=== PATIENT | female | born 1955 | race Two or more races ===

== ENCOUNTER 2023-07-21 12:06 | Day surgery (SDC) | payer MEDICARE, OTHER, SELFPAY ==
--- NOTE | 2023-07-21 12:27 | US_ITS ---
[address] [address] Patient Name: JASPREET MUSE MRN: [id number] date: 1955 Sex: F Assigned Patient Location: US Current Patient Location: US Accession/Order Number: [id number] Exam Date: 07/21/2023 12:30 Report Date: 07/21/2023 13:46 At the request of: OFELIA FARIAS Procedure: US biopsy thyroid EXAMINATION: US biopsy thyroid HISTORY: thyroid nodule COMPARISON: Prior ultrasound thyroid examination TECHNIQUE: After obtaining informed consent, ultrasound-guided fine needle aspiration was performed in the usual sterile manner. FINDINGS: IMAGING: Ultrasound. BIOPSY NEEDLE: 25-gauge Senokot 3 separate passes LOCATION: Left mid lobe solid 1.4 x 1.3 x 1.2 cm vascular nodule. SPECIMEN TYPE: Cellular tissue. LOCAL ANESTHETIC: Buffered Xylocaine. COMPLICATIONS: None. LABORATORY: Prepared slide smears and washings for cell block evaluation. OTHER: Negative. PATHOLOGY: Pending. An addendum will be added when results are available. US/US biopsy thyroid IMPRESSION: 1. Uneventful ultrasound guided fine needle aspiration (FNA). 2. Pathology results are pending. Electronically authenticated by: NANDO FREEDMAN Date: 07/21/2023 13:46
[2023-07-21 12:30] VITALS: BP 159/77; PULSE 53; O2SAT 99
[2023-07-21] MEDS: LIDOCAINE HCL 10 ML, SODIUM BICARBONATE 1 MEQ INJ (13:15)
--- NOTE | 2023-07-21 14:00 | SUR.PREOP ---
07/16/23 Pt instructed on procedure, date, time, and prep.
== END 2023-07-21 13:40 | disposition home or self-care (01) ==
LOC: US 12:14
PROVIDERS: Radiology Diagnostic Radiology; Visit Provider Otolaryngology
DX: E04.1 Nontoxic single thyroid nodule (principal)
CPT/HCPCS: 10005; 88173; 99999

== ENCOUNTER 2025-05-23 12:25 | Outpatient (OUT) | payer MEDICARE, OTHER, SELFPAY ==
--- OUTSIDE RECORDS SUMMARY | 2025-05-23 12:32 | XMS_ITS | Clinical Summary ---
Author Organization [facility] Address [address] [place], [place] [address] Care Team Providers Care Training Consultant Name Role Phone Nela Varner CNP Primary Care Provider [phone] Allergies Active AllergyReactionsCriticalityNoted DateCommentsPropoxyphene N-Acetaminophen GI Upset09/26/2021 tolerates oxycodone Nsaids (Non-Steroidal Anti-Inflammatory Drug)GI Upset09/26/2021 aleve Medications MedicationSigDispense QuantityRefillsLast FilledStart DateEnd DateStatus metoprolol succinate ER (TOPROL XL) 25 mg 24 hr tablet Take 25 mg by mouth twice daily.07/07/2021ctive famotidine (PEPCID) 20 mg tablet Take 20 mg by mouth twice daily.07/07/2021ctive atorvastatin (LIPITOR) 20 mg tablet Take 20 mg by mouth once daily.07/18/2021ctive mecobalamin (B12 ACTIVE ORAL) Take by mouth.Active magnesium oxide (MAG-OXIDE ORAL) Take by mouth.Active Cholecalciferol, Vitamin D3, 25 mcg (1,000 unit) cap Take 1,000 Units by mouth once daily.Active Zinc-Ascorbic Acid-Pyridoxine 12-60-0.5 mg lozg Take by mouth.Active calcium carbonate (CALCIUM 300 ORAL) Take by mouth.Active ubidecarenone Q-10 (CO Q-10) 10 mg cap Take 1 capsule by mouth once daily.10/01/2021ctive inulin (FIBER GUMMIES) 2 gram chew Take 2 Each by mouth once daily.10/01/2021ctive docusate sodium (COLACE) 100 mg capsule Indications:constipationTake 1 capsule by mouth twice daily as needed for constipation. 60 capsule 10/23/2021 4:00 PM EDT10/23/2021ctive aspirin, enteric coated (ECOTRIN LOW STRENGTH) 81 mg EC tablet Indications:blood clot preventionTake 1 tablet by mouth twice daily for 28 days. 56 tablet 10/23/2021 4:00 PM EDT10/23/2021ctive acetaminophen (TYLENOL EXTRA STRENGTH) 500 mg tablet Take 2 tablets by mouth every 8 hours as needed for pain.10/23/2021ctive oxyCODONE IR (ROXICODONE) 5 mg immediate release tablet Indications:S/P TKR (total knee replacement), right,Post-op painTake 1-2 tablets by mouth every 4-6 hours as needed for pain 50 tablet 10/23/2021 4:00 PM EDT10/23/2021ctive Active Problems ProblemNoted DateDiagnosed DateStatus post right knee koafwnkaqmt92/15/2022 Primary osteoarthritis of right knee10/01/2021Gastroesophageal reflux disease 09/26/2021 Assessment & Plan (09/26/2021 8:45 AM EDT): Assessment: Stable on RX Ydzojklgneqiyz28/27/3601Suqrdprcbztg82/27/2022 Assessment & Plan (09/26/2021 8:45 AM EDT): Assessment: Controlled with RX medication. Follows with PCP Ormnczrcbd48/27/2022yspnea on hsfeioox31/27/2022Memory tewvyiyrlu73/27/2022kin lesion of face09/26/2021 Immunizations ImmunizationAdministration DatesNext DueCOVID-19 original vaccine, age 12+ yr, monovalent (PFIZER-[employer] - PURPLE TOP)06/08/2021,09/15/2020,08/18/2020 influenza (HD-IIV3) vaccine, age 65+ yr, high dose, trivalent, PF (FLUZONE HIGH-DOSE)04/16/2021zoster (RZV) vaccine, recombinant (SHINGRIX)07/24/2018, 04/06/2018zoster (ZVL) vaccine, live (ZOSTAVAX)02/21/2016 Family History Medical HistoryRelationCommentsAnesthesia ProblemsNo Family History Social History Tobacco UseTypesPacks/DayYears UsedDateSmoking Tobacco: IxtukbKtckepyvlh0Nvvf: 2011Smokeless Tobacco: NeverAlcohol UseStandard Drinks/WeekCommentsNot Currently 0 (1 standard drink = 0.6 oz pure alcohol)none recently--rare one glass of wine if she doesArea Deprivation IndexAnswerDate RecordedNational Score (1-100), lower number is lower xbkf905210/07/2022State Score (1-10), lower number is lower bcfc7393Data from: https://www.neighborhoodatlas.[facility].edu/. Last address used for v[address]/07/2022CommentsNoSex and Gender InformationValueDate RecordedSex Assigned at BirthNot on fileLegal Sex Tbgnur1208/06/2021 8:47 AM ESTGender IdentityNot on fileSexual OrientationNot on file Last Filed Vital Signs Vital SignReadingTime TakenCommentsBlood Pslehnft351/4705 7:50 AM EDT Vdvsu629410/24/2021 7:50 AM DEHAebdnnowsfk41.7 ??C (98.1 ??F)10/24/2021 7:50 AM EDTRespiratory Qfwz667610/24/2021 7:50 AM EDTOxygen Hcngpzkryr21%10/24/2021 7:50 AM EDTInhaled Oxygen Concentration--Xuoxie02 kg (141 lb 1.5 oz)10/23/2021 7:12 PM ZKOSvfogd522.3 cm (4' 10 )10/23/2021 7:12 PM EDTBody Mass Index29.49 10/23/2021 7:12 PM EDT Plan of Treatment Health MaintenanceDue DateLast DoneCommentsAnnual PCP Team Chronic Disease Visit 1972Anxiety Vydvbfswa20/10/1972Depression Fjnxefwdx44/10/1972Hepatitis C Edegxgsgx35/10/1972DTaP,Tdap,Td Vaccine (1 - Tdap)1973Mammogram Screening 1994CT Mqwesefblgtf73/10/1999Cologuard (FIT-DNA)1999Colonoscopy 1999Colorectal Cancer Bkixtgxlz95/10/1999Fecal Occult Blood1999Lipid Fwmtzqcod31/10/2851Jhnzxoeoumorn75/10/1999Pneumococcal Vaccine: 50+ (1 of 1 - PCV)2004Medicare Annual Wellness Visit04/02/2019Bone Density Screening 2019Advance Directive Sablnkkdsx05/01/2025Diabetes Cijswsjls69/25/2025 10/24/2021, 09/26/2021, 2Covid-19 Vaccine ( season) 501/11/2021, 09/15/2020, 08/18/2020Influenza Vaccine (#1)2025 1RSV Vaccine (1 - 1-dose 75+ series)2029Shingrix VaccineCompleted 07/24/2018, 04/06/2018, 02/21/2016 Medical Devices ImplantedTypeAreaManufacturerDevice IdentifierShelf Expiration DateModel / Serial / LotComponent Triathlon 2 Pa Femoral Cruciate Retain Bead Knee Right - [id number] Implanted:[facility] STRY-HOWM [id number]/10/[id number] / / [id number] Triathlon 2 Tibial Sterile Latex Free Knee - [id number] Implanted:Qty: 1 [facility] STRY-HOWM QRGQDCBWHYG38/16/[id number] / / [id number] Triathlon 2 9mm Tibial Bearing Condylar Stabilize Sterile Knee - [id number] Implanted:Qty: 1 on 10/23/2021 at [facility] KneeRight: Bone - Knee STRY-HOWM IUMXUKXNBDH29/17/[id number] / / [id number] S Tritanium 31x9mm Patellar Sterile Latex Free - [id number] Implanted:Qty: 1 [facility]23/20[facility] Knee STRY-HOWM XFQTFSSGLSF95/08/[id number] / / [id number] Procedures Procedure NamePriorityDate/TimeAssociated DiagnosisCommentsBASIC METABOLIC PANEL Firsrje7010/24/2021 4:07 AM EDT from Last 3 Months or Most Recently Relevant to Health Maintenance Results * (ABNORMAL) BASIC METABOLIC PNL (10/24/2021 4:07 AM EDT)ComponentValueRef Range Test MethodAnalysis TimePerformed AtPathologist ZhosuhelaAnnebkn468(H)74 - 99 mg/dL10/24/2021 6:01 AM [facility] LABORATORYComment: The [place] Diabetes Association (ADA) provides guidance for cutoff values for fasting glucose andrandom glucose. The ADA defines fasting as no caloric intake for at least 8 hours. Fasting plasma glucose results between 100 to 125 mg/dL indicate increased risk for diabetes (prediabetes). Fasting plasma glucose results greater than or equal to 126 mg/dL meet the criteria for diagnosis of diabetes. In the absence of unequivocal hyperglycemia, results should be confirmed by repeat testing. In a patient with classic symptoms of hyperglycemia or hyperglycemic crisis, random plasma glucose results greater than or equal to 200 mg/dL meet the criteria for diagnosis of diabetes. Reference: Standards of Medical Care in Diabetes 2016, [place] Diabetes Association. Diabetes Care. 2016.39(Suppl 1). SGD171 - 21 mg/dL10/24/2021 6:01 AM [facility] LABORATORYCreatinine0.70 0.58 - 0.96 mg/dL10/24/2021 6:01 AM [facility] OBXEOAPKVDWmjcrz332434 - 144 mmol/L10/24/2021 6:01 AM [facility] LABORATORYPotassium4.43.7 - 5.1 mmol/L10/24/2021 6:01 AM [facility] AMJIXPQDCUYernlttg50381 - 105 mmol/L 10/24/2021 6:01 AM [facility] TFAUGXPVRIZL51436 - 30 mmol/L10/24/2021 6:01 AM [facility] LABORATORYAnion Yfi326 - 18 mmol/L10/24/2021 6:01 AM [facility] LABORATORYCalcium, Total9.18.5 - 10.2 mg/dL10/24/2021 6:01 AM [facility] LABORATORYEstimated Glomerular Filtration Rate95>=60 mL/min/1.73m 10/24/2021 6:01 AM [facility] LABORATORYComment:Estimated Glomerular Filtration Rate (eGFR) is calculated using the 2020 CKD-EPI creatinine equation. This equation utilizes serum creatinine, sex, and age as parameters. The creatinine assay has traceable calibration to isotope dilution-mass spectrometry. Refer to KDIGO guidelines for clinical interpretation. In patients with unstable renal function, e.g. those with acute kidney injury, the eGFRmay not accurately reflect actual GFR.Specimen (Source)Anatomical Location / LateralityCollection Method / VolumeCollection TimeReceived TimeBloodBLOOD SPECIMEN / UnknownVenipuncture / Ctvxkwu5310/24/2021 4:07 AM EDT10/24/2021 5:15 AM EDT Narrative Authorizing ProviderResult TypeResult StatusDenise [facility] PA-CLABORATORYFinal ResultPerforming OrganizationAddressCity/State/ZIP CodePhone Number [facility] [address] [place] [address], from Last 3 Months or Most Recently Relevant to Health Maintenance Insurance Care Teams Team MemberRelationshipSpecialtyStart DateEnd Date Nela Varner, CYTOGENETIC TECHNOLOGIST [address] [place] [address] PCP - GeneralInternal Medicine09/26/21
--- OUTSIDE RECORDS SUMMARY | 2025-05-23 12:32 | XMS_ITS | Clinical Summary ---
Author Organization [facility] Address [address] [facility] [place] [address] Care Team Providers Care Artificial Breast Fabricator Name Role Phone Slava Desir MD Primary Care Provider [phone] Allergies Active AllergyReactionsCriticalityNoted DateCommentsNsaidsGI intolerance 09/26/2021 aleve PropoxypheneGI rmrvrixvalx84/27/2022 tolerates oxycodone Medications MedicationSigDispense QuantityRefillsLast FilledStart DateEnd DateStatus metoprolol succinate XL (Toprol-XL) 25 MG 24 hr tablet Take 25 mg by mouth every 12 (twelve) hoursActive omeprazole (PriLOSEC) [address] capsule Take 40 mg by mouth01/22/2023ctive magnesium 30 MG tablet Take 30 mg by mouth DailyActive lisinopril 10 MG tablet Take 10 mg by mouth Daily5Active Multiple Vitamins-Minerals (multivitamin with minerals) tablet Take 1 tablet by mouth DailyActive co-enzyme Q-10 30 MG capsule Take 30 mg by mouth DailyActive Active Problems ProblemNoted DateDiagnosed VdplWqymvorequ21/06/2025Over mfrfti4808/05/2024 Encounter for weight klvtdobgdk74/06/2025Nontoxic multinodular qunwus9507/14/2023 Calcified granuloma of lung07/10/20235919Jekpxdyrq23/08/2024Emphysema lung07/10/2023 Epigastric pain07/10/2023Eustachian tube mbpiaklhbix08/08/2024Family history of colon pxcrwc3807/10/2023Hiatal msqlne7007/10/2023Thyroid dljbcf0607/10/2023Thyroiditis 07/10/2023Urinary hragzfo1807/10/2023bnormal tympanic membrane of left ear 07/10/2023ETD (Eustachian tube dysfunction), lqncnpqsi39/04/2023Disorder of tympanic membrane of left ear12/27/20221089Kmvqxwdklcdj28/28/2023rimary osteoarthritis of right knee2Dyspnea on plxiffia80/27/2022 Gastroesophageal reflux pfaepyq1609/26/2021 Overview (07/10/2023): Last Assessment & Plan: Assessment: Stable on RX Dtcczcewvgrijp64/27/2022Memory fyldlixpbd02/27/5031Dyxnpnkygz03/27/2022kin lesion of face09/26/2021 Resolved Problems ProblemNoted DateDiagnosed DateResolved DateHistory of basal cell carcinoma of skinHistory of colon ivhiyw24Non-smoker rthritis of right kneeasal cell carcinoma (BCC) of skin of right lower extremity including hip12/27/2022 12/27/2022Status post right knee kijbssmriiy87 Encounters DateTypeDepartmentCare CtqtCeloztwkzur14/22/2025 1:00 PM EDTOffice Visit [facility] [address] [place] [phone] Shu Walker MD Nontoxic multinodular goiter (Primary Dx)02/21/2025amboo flowsheet [facility] [address] [place] [phone] Shu Walker MD 02/21/2025Travelfrom Last 3 Months Immunizations ImmunizationAdministration DatesNext DuePfizer Purple Cap SARS-CoV-2 Vaccination 06/08/2021,09/15/2020,08/18/2020Zoster, Eyzhpenvgma96/22/2019,04/06/2018Zoster, live02/21/2016 Family History Medical HistoryRelationNameCommentsHypertensionBrotherCancerFatherHeart failure MotherRelationNameStatusCommentsBrotherFatherDeceasedMotherDeceased Social History Tobacco UseTypesPacks/DayYears UsedDateSmoking Tobacco: FormerCigarettes Smokeless Tobacco: Never Tobacco Cessation:Counseling Given: Not Answered Alcohol UseStandard Drinks/WeekCommentsYes0 (1 standard drink = 0.6 oz pure alcohol)AUDIT-CAnswerDate RecordedQ1: How often do you have a drink containing alcohol?Monthly or less07/11/2023verage Number of DrinksNot on file07/11/2023 Frequency of Binge DrinkingNot on file07/11/2023CommentsUnknownSex and Gender InformationValueDate RecordedSex Assigned at BirthNot on fileLegal Sex Tndpjt5808/14/2022 6:47 PM EDTGender IdentityNot on fileSexual OrientationNot on file Last Filed Vital Signs Vital SignReadingTime TakenCommentsBlood Aczmkatx151/7009 12:59 PM EDT Bdwcj773202/21/2025 12:59 PM EDTTemperature--Respiratory Rate--Oxygen Saturation-- Inhaled Oxygen Concentration--Abfcns48.6 kg (138 lb)02/21/2025 12:59 PM EDT Osasdz848.3 cm (4' 10 )02/21/2025 12:59 PM EDTBody Mass Index28.8402/21/2025 12:59 PM EDT Plan of Treatment DateTypeDepartmentCare Team (Latest Contact Info)Hrfgnkdcxju77/30/2026 1:00 PM ESTOffice Visit [facility] [address] [place] [address] Shu Walker MD [address] [facility] [address] [place] [address] 12/29/2025 11:30 AM EDTOffice Visit [facility] [address] [place] [address] Kaia Atwood PA [address] [place] [address] Insurance Care Teams Team MemberRelationshipSpecialtyStart DateEnd Slava Desir MD [address] [place] [address] PCP - GeneralInternal Medicine02/21/25
--- NOTE | 2025-05-23 12:33 | XR_ITS ---
[facility] [place] [id number] Patient Name: JASPREET MUSE MRN: [id number] date: 1955 Sex: F Assigned Patient Location: [facility] Current Patient Location: [facility] Accession/Order Number: [id number] Exam Date: 05/23/2025 12:38 Report Date: 05/23/2025 12:52 At the request of: YANIV PIMENTEL DPRohan Procedure: XR foot RT min 3V RIGHT FOOT - 3 views CLINICAL DATA: Pain at the arch of the foot for the past 3 months. No injury. COMPARISON: None Weightbearing AP, lateral and oblique views were obtained. There is no evidence of fracture or dislocation. There are tiny posterior and plantar calcaneal spurs. There are no significant soft tissue abnormalities. XR/XR foot RT min 3V IMPRESSION: NO ACUTE BONY FINDINGS. Impression dictated by: Beata Miller M.D. 05/23/2025 12:52 PM Dictation Location: [employer] Electronically authenticated by: [id number] Y Date: 05/23/2025 12:52
== END 2025-05-23 12:26 | disposition home or self-care (01) ==
LOC: RAD 12:29
PROVIDERS: PCP Internal Medicine; Visit Provider Podiatrist Foot & Ankle Surgery
DX: M79.671 Pain in right foot (principal)
CPT/HCPCS: 73630